=== PATIENT | female | born 1955 | race Caucasian/White ===

== ENCOUNTER 2020-06-11 00:43 | Outpatient (CLI) | payer OTHER, SELFPAY ==
[2020-06-11 19:42] LABS: SARS-CoV-2 RNA PCR Negative
== END 2020-06-11 00:44 | disposition home or self-care (01) ==
LOC: ANHCOVIDDT 00:43
PROVIDERS: Visit Provider Podiatrist Foot & Ankle Surgery
DX: Z01.812 Encounter for preprocedural laboratory examination (principal); Z20.822 Contact with and (suspected) exposure to COVID-19
CPT/HCPCS: C9803; U0003

== ENCOUNTER 2020-06-14 01:00 | Day surgery (SDC) | payer OTHER, SELFPAY ==
[2020-06-04 16:24] VITALS: BMI 20.9
[2020-06-14] VITALS (8 sets, daily range): BP systolic 102–131; BP diastolic 62–79; PULSE 57–80; RESP 8–20; TEMP 36.3–36.4; O2SAT 97–99
--- NOTE | ~2020-06-14 | XR_ITS ---
EXAMINATION: XR surgery orthopedic DATE: 06/14/2020 09:02 INDICATION: Left foot hallux valgus. TECHNIQUE: 4 intraoperative fluoroscopic views of left foot were obtained. I was not present. Fluoros copy exposure time was 34 seconds. COMPARISON: None. FINDINGS: The initial image demonstrates moderate hallux valgus. Additional images demonstrate an ost eotomy of first proximal phalanx with staple fixation. There is an osteotomy of first metatarsal. The re is an arthrodesis procedure of first tarsometatarsal joint with dorsal plate and screws. There is a lag screw in first metatarsal and medial and intermediate cuneiforms. IMPRESSION: 1. Bunionectomy. 2. Arthrodesis procedure involving the first metatarsal and medial and intermediate cuneiforms. Reviewed, dictated and finalized at location A. [employer] IMPRESSION: 1. Bunionectomy. 2. Arthrodesis procedure involving the first metatarsal and medial and intermed iate cuneiforms.
[2020-06-14] MEDS: LACTATED RINGERS 1,000 ML 30 ML IV CONT ×2 (06:45→09:34)
--- NOTE | 2020-06-14 06:57 | WPDANESEPPF ---
Anes - Initial Pre Proc Eval Procedure: Operation Date: 06/14/20 07:30 Proposed Procedures p Lapidus Bunionectomy Left Foot, Raul Phalangeal Osteotomy Left Hallux - Nirav Dumont JR, MD Date/Time: 06/14/20 06:57 Surgeon: Nirav Dumont JR, MD Pre Op Diagnosis: Bunion Deformity Left Foot Patient Data Age: 64 Gender: F Height: 1.68 m Weight: 61.2 kg Last Vital Signs Temp 36.4 C L 06/14/20 06:11 Pulse 68 06/14/20 06:11 Resp 20 06/14/20 06:11 BP 102/62 06/14/20 06:11 Pulse Ox 98 06/14/20 06:11 Allergies Allergy/AdvReac Type Severity Reaction Status Date / Time No Known Allergies Allergy Verified 06/14/20 06:37 Home Medications Medication Instructions Recorded Confirmed Type estradiol 1 gm VAGINAL QPM gm 05/23/19 06/14/20 History lysine 1,000 mg tablet 1,000 mg PO DAILY 05/23/19 06/14/20 History multivitamin 1 tablet PO DAILY 05/23/19 06/14/20 History cholecalciferol (vitamin D3) 125 mcg PO DAILY 06/04/20 06/14/20 History [Vitamin D3] Patient hx anesthesia problems: none Family hx anesthesia problems: none [facility] Surgical History Surgical History (Updated 05/23/19 @ 15:23 by Zaida Barclay RN) Hx of LASIK Hx of tonsillectomy Social History Social History (Updated 05/23/19 @ 15:24 by Zaida Barclay RN) Smoking status: Never smoker Alcohol intake: never Living arrangements: with family Spiritual care concerns: No Anes - Eval Final PreProcedure Day of Procedure 06/14/20 06:57 Patient weight: normal Heart: regular rate and rhythm Lungs: clear to auscultation and normal air movement Airway: Mallampati scale class II Neurological: alert and oriented Last oral intake: >/= 8 hours ASA classification: I Emergent: no Anesthetic plan: proceed Anesthesia type and monitoring: general LMA and standard monitoring Informed Consent: The patient's anesthetic plan and its attendant risks and benefits were discussed with the patient/family/POA. Questions were solicited and answers provided to the satisfaction of the patient/family/POA.
--- NOTE | 2020-06-14 06:58 | WPDANESPNB ---
Anes - Peripheral Nerve Block Date/Time: 06/14/20 06:58 I have discussed with the patient/family/POA the placement of a peripheral nerve block for post-operative pain management, including associated risks, benefits, complications, and side effects. Alternative methods of post-operative analgesia were detailed. Questions were solicited and answers provided to the satisfaction of the patient/family/POA. Time-Out: A pre-procedural Time-Out was completed immediately before starting the procedure and confirmed: Patient Identification, Site, Procedure, Patient Position and the Availability of Requisite Equipment. Clinical Indications: Acute post-operative pain management requested by the operative surgeon. Nerve Block Insertion Note Anes-nerve block: posterior fossa sciatic left and adductor canal left Patient position: supine (for adductor canal) and other (right lateral for popliteal) Skin prep: chlorhexidine Needle: 22 gauge, stimulating, insulated echogenic needle. Needle length: 80 mm Technique: nerve stimulation lost at (mA) (for popliteal lost at 0.2) and ultrasound Injectate: bupivacaine 0.5% with epi 5 mcg/ml (20 mL for popliteal, 10 mL for adductor canal) Observations: tolerated well Complications: none Procedure start time:: 722 Procedure end time:: 725
--- NOTE | 2020-06-14 07:12 | WPDHPUPDATE1 ---
History and Physical Update Update Date/Time: 06/14/20 07:12 History and Physical has been reviewed, including an updated exam of the patient. There are NO changes in the patient's condition. Risks, benefits, and alternatives have been discussed and questions answered. Patient agrees to proceed with procedure.
[2020-06-14] MEDS: ceFAZolin 2 GM/D5W 50 ML 2 GM/50 ML BAG IVPB (07:26)
--- NOTE | 2020-06-14 09:17 | PM.PROC ---
Procedure Note - Detailed Date of procedure: 06/14/20 Pre-op diagnosis: Bunion Deformity Left Foot Post-op diagnosis: same Description of procedure: 1. Lapidus Bunionectomy left foot 2. Raul phalangeal osteotomy left hallux Implants: Lapifuse 4.0mm Lag Screw Alaniz 8mm Nitinol Staple [employer] Lapifuse plate with (4) 3.5mm locking screws and (one) 3.5mm non locking screw Anesthesia: GLMA and regional Surgeon: Nirav Dumont JR, DPM Estimated blood loss (mL): 1 Drains: No Packing: No Pathology: none sent Complications: No immediate complications Condition: stable Disposition: same day Findings: Under mild sedation, the patient was brought to the operating room, placed on the operating table in the supine position. A pneumatic ankle tourniquet was placed about the patient's left ankle. Following general anesthesia and a previous popliteal fossa block, the left foot was then scrubbed, prepped, and draped in the usual aseptic manner. An Esmarch bandage was then used to examine the patient's left foot and pneumatic ankle tourniquet was then inflated. Surgery began in the following manner. Attention was directed to the dorsal aspect of the 1st metatarsocuneiform to the left foot where fluoroscopy was used to identify the joint. A 3 cm incision was made overlying the dorsal aspect of the 1st metatarsocuneiform joint of the left foot just medial to the extensor hallucis longus tendon. The incision was then continued deep down through the subcutaneous tissues using sharp and blunt dissections. All bleeders were ligated and cauterized as necessary. At this point, the extensor tendon was identified and reflected laterally. Next, the periosteum and capsular incision was made at the full length of the skin incision exposing the medial cuneiform as well as the base of the 1st metatarsal. Next, a sagittal bone saw was introduced from dorsal to plantar across the 1st metatarsocuneiform joint in order to free up any ankylosed portions of the joint and also to release any adhesions. Two Steinmann Pins were driven from dorsal to plantar 1cm proximal and distal to the 1st metatarsal cuneiform joint. The provided curved osteotomy was used to resect the cartilage and a 2.0mm drill bit was used to fenestrate the joint to promote fusion. At this point, a small 2 cm incision was made along the lateral aspect of the 1st metatarsophalangeal joint of the left foot and a lateral release consisting of a lateral capsule incision as well as release of the adductor hallucis tendon with the tenotomy as well as releasing the distal aspect and lateral aspect and proximal aspect of the fibular sesamoid. After this, a lateral release was performed. The hallux was noted to be slightly reduced as far as the track-bound hallux. A 3m incision was made medial to the first metatarsal head extending proximal to the proximal phalanx. A 1.4mm Steinmann pin was driven from medial to lateral across the 1st metatarsal head. Next the Lapifuse positioner was used to get 3 plane correction of the hallux abductovalgus deformity. Fluoroscopy was used to make sure that the 1st MPJ was congruous and the sesamoid apparatus was centered under the first metatarsal. Next a 4mm cannulated screw was driven from the medial base of the 1st metatarsal to the intermediate cuneiform bone. Excellent compression was noted, next a Lapifuse plate was placed dorsal medially along the 1st metatarsal cuneiform joint and 4 locking and one eccentrically drilled non locking screws was used to further compress the joint to ensure arthrodesis. At this point the positioner was removed and fluoroscopy was used to make sure that deformity correction was maintained. The patient still had slight hallux abductus so I made a closing medial base wedge resection from the base of the proximal phalanx and compressed the osteotomy with a eHarmony 8mm nitinol compression staple. After the Raul osteotomy the
--- NOTE | 2020-06-14 10:46 | SUR.PHASEII ---
PT AWAKE AND ALERT. DENIES PAIN OR NAUSEA. LT FOOT NUMB. NO MOVEMENT. TOES PINK AND WARM.
== END 2020-06-14 11:24 | disposition home or self-care (01) ==
PROVIDERS: Visit Provider Podiatrist Foot & Ankle Surgery
PROC: (CPT 28299; principal; 2020-06-14 07:30)
DX: M20.12 Hallux valgus (acquired), left foot (principal); M21.612 Bunion of left foot; G89.18 Other acute postprocedural pain
CPT/HCPCS: 28297; 28298; 64445; 64447; A9270; C1713; C9803; J0131; J0690; J1100; J2250; J2405; J2704; J3010; J7120; U0003